=== PATIENT | male | born 1995 | race African-American/Black ===

== ENCOUNTER 2017-08-21 18:15 | Emergency (ER) | payer OTHER ==
[2017-08-21] MEDS ORDERED: IBUPROFEN 800 MG TABLET PO ONE (19:58)
[2017-08-21] MEDS ORDERED: CYCLOBENZAPRINE HCL 10 MG TABLET PO ONE (19:58)
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
[2017-08-21 21:26] VITALS: BP 139/86
== END 2017-08-21 21:26 | disposition home or self-care (01) ==
LOC: ER 18:15
DX: S16.1XXA Strain of muscle, fascia and tendon at neck level, initial encounter (principal); S39.012A Strain of muscle, fascia and tendon of lower back, initial encounter; M25.511 Pain in right shoulder; M25.551 Pain in right hip; V49.40XA Driver injured in collision with unspecified motor vehicles in traffic accident, initial encounter
CPT/HCPCS: 99284